=== PATIENT | female | born 1960 | race African-American/Black ===

== ENCOUNTER 2017-11-08 09:01 | Day surgery (SDC) | payer MEDICARE, OTHER ==
[~2017-11-08] VITALS: Ht 170.2 cm; Wt 121.4 kg
[~2017-11-08 09:01] MED LIST: Z.0.NO CURRENT MEDS
[2017-11-08 09:15] VITALS: BP 159/92; PULSE 52; RESP 18; TEMP 98.3; O2SAT 91
[2017-11-08] MEDS ORDERED: CHLORHEXIDINE GLUCONATE 2 % 1 PACK (2 CLOTHS) TOPICAL SCH (09:30)
[2017-11-08] MEDS ORDERED: MUPIROCIN 2% OINT 1 APPLIC/GM SYR EACH NARE SCH (09:30)
[2017-11-08] MEDS ORDERED: SODIUM CHLORIDE 0.9% 1000 ML IV SCH (09:30)
[2017-11-08] MEDS ORDERED: ceFAZolin 2 GM PREMIX 50 ML - implanted port/tunneled catheter insertion IV SCH (09:30)
[2017-11-08] MEDS ORDERED: VANCOMYCIN 1000 MG/NS 250 ML - implanted port/tunneled catheter IV SCH ×2 (09:30)
[2017-11-08] MEDS ORDERED: POVIDONE IODINE 5% (ANTISEPSIS KIT) 4 APPLICATIONS EACH NARE SCH (09:30)
[2017-11-08] MEDS ORDERED: DEXA4TAB PO (09:43)
[2017-11-08] MEDS ORDERED: ESCI10TA PO (09:43)
[2017-11-08] MEDS ORDERED: SPIR100T PO (09:43)
[2017-11-08] MEDS ORDERED: PROC10TA PO (09:43)
[2017-11-08] MEDS ORDERED: TRAM50TA PO (09:43)
[2017-11-08] MEDS ORDERED: LAMO150T PO (09:43)
[2017-11-08 11:00] LABS: PROTHROMBIN TIME - PATIENT 10.5 SEC (9.8-11.6)
[2017-11-08] MEDS ORDERED: fentaNYL CITRATE 250 MCG/5 ML AMP ONE (11:11)
[2017-11-08] MEDS ORDERED: MIDAZOLAM HCL 5 MG/5 ML VIAL ONE (11:11)
[2017-11-08] MEDS ORDERED: LIDOCAINE 1%/EPINEPHrine 1:100,000 SOLN 20 ML VIAL ONE (11:30)
[2017-11-08] MEDS ORDERED: MIDAZOLAM HCL 2 MG/2 ML VIAL ONE (12:25)
[2017-11-08 13:20] VITALS: BP 178/84; PULSE 81; PULSE 82; RESP 18; TEMP 97.1; TEMP 97.9; O2SAT 91; O2SAT 92
--- NOTE | 2017-11-08 13:28 | PD.RAD ---
Post Procedure Progress Note Pre Procedure Diagnosis: (1) Colon cancer (2) Port-a-cath in place (3) Malfunctioning port-a-cath Post Procedure Diagnosis: (1) Colon cancer (2) Port-a-cath in place (3) Malfunctioning port-a-cath Procedure Date: November 08, 2017 Supervising Radiologist: Mikey Hogan Proceduralist/Assist: Emma Davis, RT(R)(), Froilan Parham RT(R) Anesthesia: Local, Analgesia, Conscious Sedation Plan of Activity Patient to Unit: [facility] Patient Condition: Good See PACS Report for procedural detail/treatment Central Venous Access Device Procedure 1 Right Internal Jugular Infusaport Placement single lumen Nepalese: 8 Procedure 2 Left Subclavian Infusaport Removal Findings: Previous port very deep in the tissues of the upper chest. Induration of regional soft tissues possible from prior regional infiltration. O/W, no signs of infection. New port placed medially in chest to minimize overlying soft tissues Mikey Hogan MD November 08, 2017 13:28
[2017-11-08] MEDS ORDERED: SODIUM CHLORIDE 0.9% FLUSH 10 ML FLUSH IVF PRN (13:30)
[2017-11-08 13:35] VITALS: BP 154/82; PULSE 69; RESP 16; O2SAT 93
[2017-11-08 14:05] VITALS: BP 156/86; PULSE 68; RESP 18; O2SAT 95
[2017-11-08 14:35] VITALS: BP 161/82; PULSE 68; RESP 18; O2SAT 97
[2017-11-08 15:05] VITALS: BP 164/89; PULSE 75; RESP 20; O2SAT 95
--- NOTE | 2017-11-08 15:35 | RADRPT ---
EXAM DATE/TIME: 11/08/2017 00:00 [facility] COMPARISON: No previous studies available for comparison. INDICATIONS : Patient presents with colon cancer and is in need of peripheral intravenous line placement for medic ation administration. MEDICAL HISTORY : Colon cancer COPD Seizures SURGICAL HISTORY : N/a ENCOUNTER: Initial ACUITY: 3 days PAIN SCORE: 0/10 LOCATION: N/A IMAGE SERIES: 0 ACCESS: Right basilic vein DEVICE(S): 1.) 3/4 Panamanian Dilator PROCEDURE : 1. Ultrasound guided venous access. The risks, benefits and alternatives to the procedure were explained and verbal and written consent w as obtained. The site was prepped in sterile fashion. Full sterile technique was used, including ca p, mask, sterile gloves and gown and a large sterile sheet. Hand hygiene and 2% chlorhexidine and/or betadine/alcohol prep was utilized per protocol for cutaneous antisepsis. Sterile gel and sterile p robe cover were utilized for ultrasound guidance. The skin and subcutaneous tissues were infiltrate d with local anesthetic solution. With ultrasound guidance the prescribed vein was punctured for venous access. A 4 Panamanian dilator was placed and was flushed and locked with heparin. The patient tolerated procedure well and there were n o complications. CONCLUSION: Uncomplicated ultrasound guided venous access. Mikey Hogan MD on November 08, 2017 at 15:32 Board Certified Radiologist. This report was verified electronically.
--- NOTE | 2017-11-08 15:39 | RADRPT ---
EXAM DATE/TIME: 11/08/2017 12:02 [facility] COMPARISON: No previous studies available for comparison. INDICATIONS : Patient presents with colon cancer and is in need of port removal and port placement for chemotherap y treatment. MEDICAL HISTORY : Colon cancer COPD Seizures SURGICAL HISTORY : N/a ENCOUNTER: Initial ACUITY: 3 days PAIN SCORE: 0/10 LOCATION: n/a FLUORO TIME: 1.31 minutes IMAGE SERIES: 1 SEDATION TIME: 120 minutes ACCESS: Right internal jugular vein SEDATION: 1.) 6 mg midazolam (Versed) IV 2.) 350 mcg fentanyl (Sublimaze) IV Prophylactic antibiotics were administered with appropriate pre-procedure timing. Vancomycin within 2 hours of procedure, Ancef (or alternative) within 1 hour of procedure. DEVICE: 1. 8 Barbadian single lumen Xcela plus port PROCEDURE : 1. Continuous pulse oximetry and EKG monitoring. 2. Intravenous conscious sedation. 3. Ultrasound guidance for venous access. 4. Fluoroscopic guided implantable central venous port placement. The patient was placed supine. The neck was prepped in sterile fashion. Full sterile technique was u sed, including cap, mask, sterile gloves and gown, and a large sterile sheet. Hand hygiene and 2% ch lorhexidine Betadine was utilized per protocol for cutaneous antisepsis with appropriate dry time for site. Sterile gel and sterile probe cover were utilized for ultrasound guidance. The skin and sub cutaneous tissues were infiltrated with local anesthetic solution. Under direct ultrasound guidance, central venous access was accomplished in the targeted vessel. The ultrasound images depicting access guidance were stored and saved to PACS for permanent record. A s ubcutaneous pocket was created using blunt dissection. The port was introduced to the pocket. The c atheter tubing was fed through a subcutaneous tunnel to the venotomy site. The catheter tubing was c ut to a suitable length and then was introduced through a valved Peel-Away sheath and positioned with catheter tubing tip at the cavo-atrial junction level. The pocket incision was closed with subcutic ular Vicryl suture. Steri-Strips were applied. The port was flushed and locked with heparin solutio n per protocol. Sterile dressing was applied to the site. The patient tolerated the procedure well. Conscious sedation was performed with the prescribed dosages and duration as above in the presence of an independent trained radiology nurse to assist in the monitoring of the patient. EKG and oximetry remained stable throughout the procedure. The patient tolerated the procedure well and there were no complications. The patient was sent to post anesthesia recovery in stable condition. CONCLUSION: Uncomplicated ultrasound and fluoroscopic guided implanted central venous port catheter placement as described in detail above. An 8 Barbadian Power port was placed. This was done in conjunction with rem oval of a nonfunctioning left-sided surgical port. Mikey Hogan MD on November 08, 2017 at 15:34 Board Certified Radiologist. This report was verified electronically.
--- NOTE | 2017-11-08 15:58 | RADRPT ---
EXAM DATE/TIME: 11/08/2017 12:02 [facility] COMPARISON: No previous studies available for comparison. INDICATIONS : Patient presents with colon cancer and is in need of port removal and port placement for chemotherap y treatment. MEDICAL HISTORY : Colon cancer COPD Seizures SURGICAL HISTORY : N/a ENCOUNTER: Initial ACUITY: 3 days PAIN SCORE: 0/10 LOCATION: N/a SEDATION TIME: 120 minutes 1.) 6 mg midazolam (Versed) IV 2.) 350 mcg fentanyl (Sublimaze) IV Prophylactic antibiotics were administered with appropriate pre-procedure timing. Vancomycin within 2 hrs of procedure, Ancef (or alternative) within 1 hr of procedure. PROCEDURE : 1. Removal of [id number]. 2. Conscious sedation with continuous EKG and oximetry monitoring. 3. Fluoroscopic guidance. The risks, benefits and alternatives to the procedure were explained and verbal and written consent w as obtained. The patient was placed supine. The port was prepped in sterile fashion. Full sterile t echnique was used, including cap, mask, sterile gloves and gown, and a large sterile sheet. Hand hyg iene and 2% chlorhexidine and/or Betadine/alcohol prep was utilized per protocol for cutaneous antise psis. The skin and subcutaneous tissues were infiltrated with local anesthetic solution the subcutaneous po cket was opened. The port was dissected from the subcutaneous tissues and easily removed in one piec e. The pocket incision was closed with subcuticular Vicryl suture. Steri-Strips were applied. Conscious sedation was performed with the prescribed dosages and duration as above in the presence of an independent trained radiology nurse to assist in the monitoring of the patient. EKG and oximetry remained stable throughout the procedure. The patient tolerated the procedure well and there were n o complications. The patient was sent to post anesthesia recovery in stable condition. CONCLUSION: Uncomplicated port removal as above. Procedure was done in conjunction with new port placement on the right side. Mikey Hogan MD on November 08, 2017 at 15:54 Board Certified Radiologist. This report was verified electronically.
== END 2017-11-08 15:25 | disposition home or self-care (01) ==
LOC: HROP 09:01 → HRIP 09:04 → HROP 15:25
PROVIDERS: ATTEND Radiology Body Imaging
DX: T82.594A Other mechanical complication of infusion catheter, initial encounter (principal); C18.4 Malignant neoplasm of transverse colon; J44.9 Chronic obstructive pulmonary disease, unspecified; R56.9 Unspecified convulsions; Z01.818 Encounter for other preprocedural examination; T80.81 Extravasation of vesicant agent
CPT/HCPCS: 36410; 36561; 36590; 76937; 77001; 85610; 85730; 99152; 99153; C1788; J0690; J1642; J2250; J3010; J3370; J7030; J7050